=== PATIENT | male | born 2000 | race Two or more races ===

== ENCOUNTER 2021-01-16 17:14 | Emergency (ER) | payer SELFPAY ==
[~2021-01-16] VITALS: Ht 188 cm; Wt 90.7 kg
[2021-01-16 18:26] VITALS: BP 96/66
== END 2021-01-16 19:56 | disposition left against medical advice (07) ==
LOC: ER 17:14 → EDBD 17:14 → ER 19:56
DX: S61.432A Puncture wound without foreign body of left hand, initial encounter (principal); W26.0XXA Contact with knife, initial encounter; Y93.89 Activity, other specified; Y92.89 Other specified places as the place of occurrence of the external cause; Y99.8 Other external cause status

== ENCOUNTER 2021-01-17 08:13 | Emergency (ER) | payer SELFPAY ==
[~2021-01-17] VITALS: Ht 190.5 cm; Wt 99.8 kg
[2021-01-17 09:07] VITALS: BP 118/79
== END 2021-01-17 09:45 | disposition home or self-care (01) ==
LOC: ER 08:13
DX: S61.412A Laceration without foreign body of left hand, initial encounter (principal); W26.0XXA Contact with knife, initial encounter; Y93.89 Activity, other specified; Y92.89 Other specified places as the place of occurrence of the external cause; Y99.8 Other external cause status
CPT/HCPCS: 12001

== ENCOUNTER 2021-01-25 07:19 | Emergency (ER) | payer SELFPAY ==
[~2021-01-25] VITALS: Ht 190.5 cm; Wt 108.9 kg
[2021-01-25 07:21] VITALS: BP 115/83
== END 2021-01-25 08:56 | disposition home or self-care (01) ==
LOC: ER 07:19
DX: S61.412D Laceration without foreign body of left hand, subsequent encounter (principal); X58.XXXD Exposure to other specified factors, subsequent encounter